=== PATIENT | male | born 1995 | race Caucasian/White ===

== ENCOUNTER 2020-08-02 12:34 | Emergency (ER) | payer OTHER ==
[~2020-08-02] VITALS: Wt 93.0 kg
[2020-08-02 12:39] VITALS: BP 152/84
[2020-08-02] MEDS ORDERED: TRAMADOL HCL50 MG PO (14:39)
== END 2020-08-02 14:38 | disposition home or self-care (01) ==
LOC: ED 12:34
DX: S59.201A Unspecified physeal fracture of lower end of radius, right arm, initial encounter for closed fracture (principal); S52.614A Nondisplaced fracture of right ulna styloid process, initial encounter for closed fracture; X50.0XXA Overexertion from strenuous movement or load, initial encounter; Y93.89 Activity, other specified; Y92.89 Other specified places as the place of occurrence of the external cause; Y99.8 Other external cause status